=== PATIENT | male | born 1975 | race Caucasian/White ===

== ENCOUNTER → 2016-09-28 | Outpatient (CLI) | payer OTHER ==
--- NOTE | 2016-09-28 17:42 | CARD ---
APPROVED REPORT INDICATION Dyspnea Reason : Patient complained of pain PROCEDURE The patient underwent an Exercise Stress Test using the Carmelo Protocol. Blood pressure, heart rate, a nd EKG were monitored. An Echocardiogram was performed by licensed veterinary technician in four stages in quad fashion. At peak stress four se lected images were obtained and placed side by side with resting images for comparison. STRESS ECHO FINDINGS The resting Echocardiogram showed normal left ventricular contractility with an estimated Ejection Fr action of about 60 %. Normal augmentation of myocardial wall segments using a 16 segment model. Test Type: Exercise Stress Nurse/Tech: Amy Tyler R.N. Test Indications: SOA Cardiac History and Allergies: afib Medications: cardizem, asa, xanax Medical History: see ehr Resting Heart Rate: 84 bpm Resting Blood Pressure: 156/90mmHg Pretest Chest Pain: No chest pain Nurse/Tech Notes lungs cta,heart tones regular, good radial pulse Consent: The procedure was explained to the patient in lay terms. Informed consent was witnessed. [place]ingo eout was entered into [employer]. History and Stress Test performed by Amy Tyler R.N. Stress Symptoms No chest pain or symptoms.Dizziness POST EXERCISE Reason for Termination: Reached target heart rate Target HR: Yes Max HR: 161 bpm 90% of Maximum Predicted HR: 179 bpm Exercise duration: 9:00 min:sec, 3 Stage Exercise capacity: 10.1METs Max Blood Pressure: 156/90mmHg Blood Pressure response to exercise: Normal blood pressure response during stress. Heart Rate response to exercise: normal Chest Pain: No. Arrhythmia: No. ST Change: Yes. ST depression noted in stage 2 in II, III, avf, v4-6, persisted throughout recovery RESTING ECG Rhythm: Sinus Arrhythmias: None STRESS ECG Rhythm: Sinus Tachycardia Normal ST-Segment changes. Stress EKG shows no significant changes. Preliminary Notification Critical Value: No <Conclusion> The left ventricle is normal in size and wall thickness in both the rest and stress images.
== END | disposition home or self-care (01) ==
LOC: ECHO 13:13
PROVIDERS: ATTEND Internal Medicine Cardiovascular Disease
DX: R06.00 Dyspnea, unspecified (principal)
CPT/HCPCS: 93017; 93350